=== PATIENT | female | born 1950 | race Caucasian/White ===

== ENCOUNTER → 2020-12-21 08:04 | Outpatient (CLI) | payer MEDICARE, OTHER, SELFPAY ==
[2020-12-21 19:37] LABS: Alanine Aminotransferase 15 IU/L (<35); Albumin 4.4 g/dL (3.5-5.0); Albumin Globulin Ratio 1.8 (1.0-2.8); Alkaline Phosphatase 107 U/L (38-126); Aspartate Aminotransferase 28 IU/L (14-36); BUN Creatinine Ratio 17.5 (6-22); Bilirubin Total 0.9 mg/dL (0.2-1.3); Blood Urea Nitrogen 11 mg/dL (7-17); Calcium 10.2 mg/dL (8.4-10.2); Carbon Dioxide 32 mmol/L (22-32); Chloride 101 mmol/L (98-107); Cholesterol 212 mg/dL (140-199); Estimated Glomerular Filt Rate > 60.0 mL/min (>60); Globulin 2.4 g/dL (1.7-4.1); Glucose 93 mg/dL (80-110); HDL Cholesterol 106 mg/dL (40-60); HEMOLYSIS < 15 (0-50); LDL Cholesterol Calculated 90 mg/dL (<100); Sodium 138 mmol/L (137-145); Total Protein 6.8 g/dL (6.3-8.2); Triglycerides 78 mg/dL (35-150)
[2020-12-21 19:38] LABS: Add Manual Diff / Slide Review NO; Basophils Absolute Auto 100 /uL (0-100); Basophils Percent Auto 0.9 % (0-2); Eosinophils Absolute Auto 200 /uL (0-450); Eosinophils Percent Auto 3.8 % (2-4); Hematocrit 44.6 % (36-46); Hemoglobin 14.9 g/dL (12.0-16.0); Lymphocytes Absolute Auto 1600 /uL (1100-4500); Mean Corpuscular HGB Conc 33.3 % (30-36); Mean Corpuscular Volume 96.2 fL (80-100); Monocytes Absolute Auto 600 /uL (0-900); Neutrophils Absolute Auto 3700 /uL (1500-7000); Neutrophils Percent Auto 59.3 % (50-75); Platelet Count 252 X10^3/uL (150-400); Red Blood Cell Count 4.64 X10^6/uL (4.0-5.2); Red Cell Distribution Width 13.5 % (11.6-14.8); White Blood Cell Count 6.2 X10^3/uL (4.5-11.0)
== END ==
PROVIDERS: PCP Family Medicine; Visit Provider Family Medicine
DX: I10 Essential (primary) hypertension (principal)
CPT/HCPCS: 80053; 80061; 85025

== ENCOUNTER → 2022-02-14 09:29 | Outpatient (CLI) | payer MEDICARE, OTHER, SELFPAY ==
[2022-02-14 19:34] LABS: Add Manual Diff / Slide Review NO; Basophils Absolute Auto 100 /uL (0-100); Basophils Percent Auto 1.1 % (0-2); Eosinophils Absolute Auto 400 /uL (0-450); Eosinophils Percent Auto 8.5 % (2-4); Hematocrit 41.4 % (36-46); Lymphocytes Absolute Auto 1300 /uL (1100-4500); Mean Corpuscular HGB Conc 33.7 % (30-36); Mean Corpuscular Hemoglobin 31.2 PG (26-34); Mean Corpuscular Volume 92.6 fL (80-100); Monocytes Absolute Auto 400 /uL (0-900); Monocytes Percent Auto 8.6 % (3-14); Neutrophils Absolute Auto 2500 /uL (1500-7000); Neutrophils Percent Auto 53.8 % (50-75); Platelet Count 290 X10^3/uL (150-400); Red Blood Cell Count 4.47 X10^6/uL (4.0-5.2); Red Cell Distribution Width 12.8 % (11.6-14.8); White Blood Cell Count 4.7 X10^3/uL (4.5-11.0)
[2022-02-14 19:49] LABS: Alanine Aminotransferase 16 IU/L (<35); Albumin 4.3 g/dL (3.5-5.0); Albumin Globulin Ratio 1.7 (1.0-2.8); Alkaline Phosphatase 127 U/L (38-126); Aspartate Aminotransferase 28 IU/L (14-36); BUN Creatinine Ratio 23.1 (6-22); Bilirubin Total 0.7 mg/dL (0.2-1.3); Blood Urea Nitrogen 15 mg/dL (7-17); Calcium 9.1 mg/dL (8.4-10.2); Carbon Dioxide 27 mmol/L (22-32); Chloride 100 mmol/L (98-107); Cholesterol 205 mg/dL (140-199); Estimated Glomerular Filt Rate > 60 mL/min (>60); Globulin 2.5 g/dL (1.7-4.1); Glucose 80 mg/dL (80-110); HDL Cholesterol 88 mg/dL (40-60); HEMOLYSIS < 15 (0-50); LDL Cholesterol Calculated 106 mg/dL (<100); Potassium 4.1 mmol/L (3.4-5.1); Sodium 136 mmol/L (137-145); Total Protein 6.8 g/dL (6.3-8.2); Triglycerides 57 mg/dL (35-150)
[2022-02-14 20:38] LABS: Erythrocyte Sedimentation Rate 5 MM/HR (0-20)
== END ==
PROVIDERS: PCP Physician Assistant; Visit Provider Physician Assistant
DX: M25.569 Pain in unspecified knee (principal); I10 Essential (primary) hypertension; K21.9 Gastro-esophageal reflux disease without esophagitis; Z13.220 Encounter for screening for lipoid disorders; Z79.899 Other long term (current) drug therapy
CPT/HCPCS: 80053; 80061; 85025; 85651

== ENCOUNTER → 2022-02-21 14:39 | Outpatient (CLI) | payer MEDICARE, OTHER, SELFPAY | PROVIDERS: PCP Physician Assistant; Referring Provider Physician Assistant; Visit Provider Physician Assistant | DX: Z13.820 Encounter for screening for osteoporosis (principal); Z78.0 Asymptomatic menopausal state; M85.852 Other specified disorders of bone density and structure, left thigh | CPT/HCPCS: 77080 ==

== ENCOUNTER → 2022-05-03 10:28 | Outpatient (CLI) | payer MEDICARE, OTHER, SELFPAY ==
[2022-05-03 19:42] LABS: Add Manual Diff / Slide Review NO; Basophils Absolute Auto 0 /uL (0-100); Basophils Percent Auto 0.9 % (0-2); Eosinophils Absolute Auto 200 /uL (0-450); Eosinophils Percent Auto 5.2 % (2-4); Hematocrit 41.1 % (36-46); Hemoglobin 13.6 g/dL (12.0-16.0); Lymphocytes Absolute Auto 1100 /uL (1100-4500); Lymphocytes Percent Auto 27.1 % (25-40); Mean Corpuscular Hemoglobin 30.9 PG (26-34); Mean Corpuscular Volume 93.6 fL (80-100); Monocytes Absolute Auto 400 /uL (0-900); Monocytes Percent Auto 10.9 % (3-14); Neutrophils Absolute Auto 2200 /uL (1500-7000); Neutrophils Percent Auto 55.9 % (50-75); Platelet Count 279 X10^3/uL (150-400); Red Blood Cell Count 4.39 X10^6/uL (4.0-5.2); Red Cell Distribution Width 13.7 % (11.6-14.8)
[2022-05-03 19:47] LABS: Alanine Aminotransferase 17 IU/L (<35); Albumin 4.1 g/dL (3.5-5.0); Albumin Globulin Ratio 1.6 (1.0-2.8); Alkaline Phosphatase 88 U/L (38-126); Aspartate Aminotransferase 28 IU/L (14-36); BUN Creatinine Ratio 25.4 (6-22); Bilirubin Total 0.5 mg/dL (0.2-1.3); Blood Urea Nitrogen 15 mg/dL (7-17); Calcium 9.6 mg/dL (8.4-10.2); Carbon Dioxide 30 mmol/L (22-32); Chloride 102 mmol/L (98-107); Estimated Glomerular Filt Rate > 60 mL/min (>60); Globulin 2.5 g/dL (1.7-4.1); Glucose 76 mg/dL (80-110); HEMOLYSIS 27 (0-50); Potassium 4.5 mmol/L (3.4-5.1); Sodium 139 mmol/L (137-145); Total Protein 6.6 g/dL (6.3-8.2)
== END ==
PROVIDERS: PCP Physician Assistant; Visit Provider Physician Assistant
DX: I10 Essential (primary) hypertension (principal); R74.8 Abnormal levels of other serum enzymes; Z79.899 Other long term (current) drug therapy
CPT/HCPCS: 80053; 85025

== ENCOUNTER → 2022-05-09 13:09 | Outpatient (CLI) | payer MEDICARE, OTHER, SELFPAY ==
[2022-05-11 12:53] LABS: Fecal Immunochemical Test Negative (Negative)
== END ==
PROVIDERS: PCP Physician Assistant; Visit Provider Physician Assistant
DX: I10 Essential (primary) hypertension (principal); K21.9 Gastro-esophageal reflux disease without esophagitis; Z13.220 Encounter for screening for lipoid disorders; Z79.899 Other long term (current) drug therapy
CPT/HCPCS: 82274

== ENCOUNTER → 2023-01-11 14:31 | Outpatient (CLI) | payer MEDICARE, OTHER, SELFPAY ==
[2023-01-11 19:46] LABS: BUN Creatinine Ratio 24.6 (6-22); Blood Urea Nitrogen 15 mg/dL (7-17); Calcium 10.1 mg/dL (8.4-10.2); Carbon Dioxide 26 mmol/L (22-32); Chloride 100 mmol/L (98-107); Estimated Glomerular Filt Rate > 60 mL/min (>60); Glucose 91 mg/dL (80-110); HEMOLYSIS < 15 (0-50); Sodium 137 mmol/L (137-145)
== END ==
PROVIDERS: PCP Physician Assistant; Visit Provider Nurse Practitioner Acute Care
DX: Q21.10 Atrial septal defect, unspecified (principal)
CPT/HCPCS: 80048

== ENCOUNTER → 2023-02-20 10:31 | Outpatient (CLI) | payer MEDICARE, OTHER, SELFPAY ==
--- NOTE | 2023-02-20 10:33 | DI.MRI.S_ITS ---
PROCEDURE: MR LUMBAR SPINE WO CON INDICATIONS: lumbar pain radiating to right leg TECHNIQUE: Noncontrast sagittal T1 spin echo and T2 fast echo, sagittal STIR, and T2 fast spin echo through the lumbar spine. In cases with scoliosis, additional coronal T2 fast spin echo may be performed. COMPARISON: None. FINDINGS: Image quality: Excellent. Alignment and Curvature: There is normal bony alignment. Bone Marrow: Marrow is of normal overall signal. No acute vertebral body compression fractures. Spinal Cord: Conus medullaris terminates at the L1 level. Visualized cord demonstrates normal signal and size. Paraspinous Soft Tissues: No paravertebral masses. T12-L1: Normal appearance. L1-L2: Normal appearance. L2-L3: Disc height is maintained. Hypertrophic facet joints present. Mild central and no foraminal stenosis L3-L4: Disc height is maintained. Circumferential disc bulge and hypertrophic facet joints with ligamentum flavum laxity results in moderate central stenosis. No foraminal stenosis L4-L5: Disc space narrowing and posterior disc bulge with hypertrophic facet joints. Moderate central stenosis. Moderate bilateral foraminal stenosis greater on the left. L5-S1: Disc height is maintained. Posterior asymmetric left disc bulge with mild central stenosis. No foraminal stenosis IMPRESSION: Multilevel degenerative disc disease and arthropathy results in varying degrees of central and foraminal stenosis including moderate central stenosis L3-4 Approved by: Chandler Jules M.D. on 02/20/2023 at 15:35
--- NOTE | 2023-02-20 10:33 | DI.MRI.S_ITS ---
PROCEDURE: MR THORACIC SPINE WO CON INDICATIONS: thoracic pain with radiation to chest wall and arms TECHNIQUE: Noncontrast sagittal T1 spine echo and T2 fast spin echo, sagittal STIR, and T2 fast spin echo through the thoracic spine. COMPARISON: None. FINDINGS: Image quality: Excellent. Alignment and Curvature: There is normal bony alignment. Bone Marrow: Marrow is of normal overall signal. No acute vertebral body compression fractures. Spinal Cord: Visualized spinal cord is normal in size and signal. Paraspinous Soft Tissues: No paravertebral masses. Incidental L1-2 and T12-L1 foraminal perineural cyst Miscellaneous: On axial images, central canal and foramina appear widely patent at all scanned levels. Incidentally at C5-6, there is a posterior disc osteophyte complex resulting in moderate central stenosis IMPRESSION: Incidental moderate central stenosis C5-6 and perineural cysts at L1-2 / T12-L1 Approved by: Chandler Jules M.D. on 02/20/2023 at 15:04
== END ==
PROVIDERS: PCP Physician Assistant; Referring Provider Physician Assistant; Visit Provider Physician Assistant
DX: M48.02 Spinal stenosis, cervical region (principal); M54.14 Radiculopathy, thoracic region; G96.191 Perineural cyst; M51.16 Intervertebral disc disorders with radiculopathy, lumbar region; M47.26 Other spondylosis with radiculopathy, lumbar region; M48.061 Spinal stenosis, lumbar region without neurogenic claudication; M48.07 Spinal stenosis, lumbosacral region; M51.17 Intervertebral disc disorders with radiculopathy, lumbosacral region; M25.551 Pain in right hip; M17.11 Unilateral primary osteoarthritis, right knee; M25.561 Pain in right knee; M54.9 Dorsalgia, unspecified; G89.29 Other chronic pain
CPT/HCPCS: 72146; 72148; 99214

== ENCOUNTER 2023-06-13 14:32 | Outpatient (CLI) | payer MEDICARE, OTHER, SELFPAY ==
[2023-06-13] VITALS (8 sets, daily range): BP systolic 138–148; BP diastolic 72–91; PULSE 62–78; RESP 15–22; TEMP 36.5; O2SAT 97–100
[2023-06-13] MEDS: MIDAZOLAM 2 MG/2 ML VIAL 1 MG IV (15:30)
--- NOTE | 2023-06-13 15:30 | DI.RAD.S_ITS ---
PROCEDURE: PAIN GENICULAR NERVE BLOCK RT INDICATIONS: knee osteoarthritis COMPARISON: [facility] ([facility]), CR, XR KNEE RT 3V, 01/05/2023, 11:12. FINDINGS: Fluoroscopic spot filming was performed to verify placement of spinal needles at the knee level(s), as labeled on the films. Appropriate location(s) of the needle tip(s) was confirmed by injection of iodinated contrast. IMPRESSION: Fluoroscopy guidance for pain management. Dictated by: Anthony Dailey M.D. on 06/14/2023 at 9:20 Approved by: Anthony Dailey M.D. on 06/14/2023 at 9:21
[2023-06-13] MEDS: BUPIVACAINE 0.5% (PF) 10 ML VIAL 5 ML INJ (15:32)
[2023-06-13] MEDS: iopamidoL 15 ML VIAL 3 ML INJ (15:33)
--- NOTE | 2023-06-13 16:37 | P.PCN_ITS ---
Date/Time/Diagnoses Date of procedure: 06/13/23 Time of procedure: 15:30 Procedure Notes Physician: Jefry Saravia Total Fluoroscopy time (seconds): 14 Total sedation minutes: 12 Procedure in detail & Post-procedure care: Right Genicular Nerve Injections Indications: Rylie is presenting for treatment of right knee osteoarthritis with knee pain. Preoperative diagnosis: Right knee osteoarthritis Postoperative diagnosis: Same Focused Examination: Ax3 Mood and affect are normal Vital Signs: VSS Consent: Following review of allergies and potential side effects/complications, including, but not necessarily limited to, infection, allergic reaction, local tissue breakdown, stroke, temporary or permanent nerve injury, paralysis, and possible , the patient indicated that they understood and agreed to proceed.? An informed consent document was signed by the patient, witnessed by a nurse and placed in the patient's chart.? Additionally, other treatment options including medications and physical therapy were reviewed with the patient. All questions were answered. Site was then marked. Anesthesia: After review of previous anesthetic history and IV conscious sedation, the patient was deemed safe to proceed with today's procedure with IV conscious sedation. IV sedation was accomplished with midazolam 1 mg administered by the RN after order by Dr. Saravia. Sedation was titrated to patient comfort during the course of the procedure. Patient remained responsive to all verbal commands. Position: Prone Monitoring: NIBP, Pulse oximetry, 3 lead EKG Needle used: 22 ga, 3.5 inch spinal Contrast: Isovue 300-M 2 mL Injectate: 0.5% bupivacaine 1 mL per site Technique: The skin was prepped with chloraprep and then draped in a sterile fashion. Time out was performed as per protocol. Oxygen applied via NC. Skin and subcutaneous structures of the needle entry sites were then infiltrated with 5 mL of lidocaine 1% divided among the 3 injection sites. Under AP and lateral fluoroscopic control, the needles were guided into the expected location of the superomedial, superolateral and inferomedial genicular nerves. Isovue 300-M was then injected and the spread confirmed proper needle location. There was no evidence for intravascular uptake. After negative aspiration, the above- mentioned injectate was then slowly administered to each site and the needles withdrawn. The patient expressed no unusual discomfort or paresthesias during the injection. Band-Aids applied to injection sites. EBL: less than 1 ml Complications: None Post Procedure: Patient was taken to the recovery and monitored. The patient was provided a Pain Log to continue to record the patient's response to the target- specific procedure prior to the patient's follow-up visit with the referring physician. Patient was stable upon discharge. Detailed post procedure instructions were provided. Patient was asked to call in the event of worsening pain, fever, weakness, numbness or bladder or bowel incontinence.
--- NOTE | 2023-06-14 13:48 | PC.NURSE ---
Post-Procedure Call: Spoke with patient at [phone]. Questions regarding follow up appt answered. Encouraged to contact the office as needed.
== END 2023-06-13 16:09 | disposition home or self-care (01) ==
PROVIDERS: PCP Physician Assistant; Referring Provider Anesthesiology; Visit Provider Anesthesiology
DX: M17.11 Unilateral primary osteoarthritis, right knee (principal)
CPT/HCPCS: 64454; 99152; J2250

== ENCOUNTER 2023-08-22 12:04 | Outpatient (CLI) | payer MEDICARE, OTHER, SELFPAY ==
[2023-08-22] VITALS (9 sets, daily range): BP systolic 106–139; BP diastolic 62–80; PULSE 64–76; RESP 10–20; TEMP 36.1; O2SAT 97–100
--- NOTE | 2023-08-22 12:05 | DI.RAD.S_ITS ---
PROCEDURE: XR DEXA AXIAL SKELETON INDICATIONS: bone density screening COMPARISON: [facility], CR, XR DEXA AXIAL SKELETON, 02/21/2022, 15:02. FINDINGS: Lumbar Spine: L1-L3. Bone mineral density 0.790 g/cm2, T score -2.1. Left Hip: Bone mineral density 0.687 g/cm2, T score -2.1, no significant oval change. Left Femoral Neck: Bone mineral density 0.620 g/cm2, T score -2.1, no significant interval change. Right Hip: Bone mineral density 0.656 g/cm2, T score -2.3, no significant oval change. Right Femoral Neck: Bone mineral density 0.699 g/cm2, T score 1.4, there is significant interval increase in bone mineral density. Fracture Risk Calculation (when applicable): 10-year fracture risk of a major osteoporotic fracture 23% and of a hip fracture 13%. (T score greater or equal to -1.0 to: NORMAL) (T score from -1.1 to -2.4: OSTEOPENIA) (T score less than or equal to -2.5: OSTEOPOROSIS) IMPRESSION: Osteopenia. There is significant interval increase in bone mineral density at the right femoral neck. Follow-up guidelines as follows: Osteoporosis: Consider a repeat DEXA and Vertebral Fracture Assessment (VFA) exam in 2 years or sooner if medically necessary, to reassess this patient's status. Osteopenia: Consider a repeat DEXA in 2-3 years to reassess this patient's status, or if there is a new clinical indication. Normal: Consider a repeat DEXA in 5 years or sooner, or if there is a new clinical indication. All treatment decisions require clinical judgment and consideration of individual patient factors, including patient preferences, comorbidities, previous drug use, risk factors not captured in the FRAX model (e.g., frailty, falls, vitamin D deficiency, increased bone turnover, interval significant decline in bone density ) and possible under- or over-estimation of fracture risk by FRAX. In addition, the NOF Guide recommends that FDA-approved medical therapies be considered in postmenopausal women and men age >= 50 years with a: * Hip or vertebral (clinical or morphometric) fracture * T-score of <=-2.5 at the spine or hip * Ten-year fracture probability by FRAX of >= 3% for hip fracture or >=20% for major osteoporotic fracture. People with diagnosed cases of osteoporosis or at high risk for fracture should have regular bone mineral density tests. For patients eligible for Medicare, routine testing is allowed once every 2 years. The testing frequency can be increased to one year for patients who have rapidly progressing disease, those who are receiving or discontinuing medical therapy to restore bone mass, or have additional risk factors. Dictated by: Junior Lyn M.D. on 08/22/2023 at 17:39 Approved by: Junior Lyn M.D. on 08/22/2023 at 17:42
--- NOTE | 2023-08-22 14:00 | DI.RAD.S_ITS ---
PROCEDURE: GENICULAR RFA RT INDICATIONS: Rt knee pain and arthritis COMPARISON: None. FINDINGS: Fluoroscopic spot filming was performed to verify placement of needles for genicular ablation level(s), as labeled on the films. Appropriate location(s) of the needle tip(s) was confirmed by injection of iodinated contrast. IMPRESSION: Needle placement for geniculate ablation Dictated by: Lety Marcus M.D. on 08/22/2023 at 17:19 Approved by: Lety Marcus M.D. on 08/22/2023 at 17:19
[2023-08-22] MEDS: MIDAZOLAM 2 MG/2 ML VIAL 1 MG IV ×2 (14:20→14:29)
[2023-08-22] MEDS: DEXAMETHASONE 10 MG/ML VIAL INJ (14:24)
[2023-08-22] MEDS: LIDOCAINE 2% INJ MDV 20ML 5 ML INJ (14:24)
[2023-08-22] MEDS: BUPIVACAINE 0.5% (PF) 10 ML VIAL 5 ML INJ (14:24)
--- NOTE | 2023-08-22 16:52 | P.PCN_ITS ---
Date/Time/Diagnoses Date of procedure: 08/22/23 Time of procedure: 14:00 Procedure Notes Physician: Jefry Saravia Total Fluoroscopy time (seconds): 18 Total sedation minutes: 23 Procedure in detail & Post-procedure care: Right Genicular Nerve Radiofrequency Ablation Indications: Rylie is presenting for treatment of right knee osteoarthritis with knee pain. Preoperative diagnosis: Right knee osteoarthritis Postoperative diagnosis: Same Focused Examination: Ax3 Mood and affect are normal Vital Signs: VSS Consent: Following review of allergies and potential side effects/complications, including, but not necessarily limited to, infection, allergic reaction, local tissue breakdown, stroke, temporary or permanent nerve injury, paralysis, and possible , the patient indicated that they understood and agreed to proceed.? An informed consent document was signed by the patient, witnessed by a nurse and placed in the patient's chart.? Additionally, other treatment options including medications and physical therapy were reviewed with the patient. All questions were answered. Site was then marked. Anesthesia: After review of previous anesthetic history and IV conscious sedation, the patient was deemed safe to proceed with today's procedure with IV conscious sedation. IV sedation was accomplished with midazolam 2 mg administered by the RN after order by Dr. Saravia. Sedation was titrated to patient comfort during the course of the procedure. Patient remained responsive to all verbal commands. Position: Supine Monitoring: NIBP, Pulse oximetry, 3 lead EKG Procedure: The patient was brought into the procedure room and positioned into the supine position with the affected knee on a bolster for elevation. Skin overlying the right knee was prepped with a Chloraprep solution, allowed to air dry, and then draped in sterile fashion.? Oxygen applied via NC. Using the AP fluoroscopic view, skin and subcutaneous structures of the needle entry sites were infiltrated with 5 mL of lidocaine 1% divided among the 3 injection sites. Under AP and lateral fluoroscopic control, an 18 ga, 100 mm RFA needle with a 10 mm active tip was advanced into the expected location of the superomedial, superolateral and inferomedial genicular nerves. AP and lateral radiographs were taken to confirm proper needle placement. No paresthesias were noted. The stylet was removed and the radiofrequency probe was inserted through the cannula. Each level was individually tested.? Motor stimulation up to 2V did not elicit any motor stimulation. After negative aspiration, 1ml of 2% lidocaine was injected at each of the locations and radiofrequency ablation carried out using 50 degrees Celsius for 60 seconds. The needles were then withdrawn several milimeters and a second ablation was performed at 50 degrees Celsius for 60 seconds. The needles were then withdrawn several milimeters and a third ablation was performed at 50 degrees Celsius for 60 seconds. After ablation, a mixture of 10 mg dexamethasone with 0.5% bupivacaine 2 mL was injected in equal amounts among the sites (1 mL per site). At the end of the procedure the needles were withdrawn and Band-Aids were applied for a dressing. EBL: less than 1 ml Complications: None Post Procedure: Patient was taken to the recovery and monitored. The patient was provided a Pain Log to continue to record the patient's response to the target- specific procedure prior to the patient's follow-up visit with the referring physician. Patient was stable upon discharge. Detailed post procedure instructions were provided. Patient was asked to call in the event of worsening pain, fever, weakness, numbness or bladder or bowel incontinence
== END 2023-08-22 15:08 | disposition home or self-care (01) ==
LOC: RAD 12:05
PROVIDERS: PCP Physician Assistant; Referring Provider Anesthesiology; Visit Provider Anesthesiology
DX: M85.89 Other specified disorders of bone density and structure, multiple sites (principal); M17.11 Unilateral primary osteoarthritis, right knee; Z78.0 Asymptomatic menopausal state; M25.561 Pain in right knee
CPT/HCPCS: 64624; 77080; 99152; 99153; J1100; J2250

== ENCOUNTER → 2023-12-03 09:33 | Outpatient (CLI) | payer MEDICARE, OTHER, SELFPAY ==
[2023-12-03 19:26] LABS: Add Manual Diff / Slide Review NO; Basophils Absolute Auto 100 /uL (0-100); Basophils Percent Auto 1.4 % (0-2); Eosinophils Absolute Auto 100 /uL (0-450); Eosinophils Percent Auto 3.2 % (2-4); Hematocrit 38.8 % (36-46); Hemoglobin 12.8 g/dL (12.0-16.0); Lymphocytes Absolute Auto 1100 /uL (1100-4500); Lymphocytes Percent Auto 24.5 % (25-40); Mean Corpuscular Hemoglobin 30.6 PG (26-34); Mean Corpuscular Volume 92.6 fL (80-100); Monocytes Absolute Auto 500 /uL (0-900); Monocytes Percent Auto 10.6 % (3-14); Neutrophils Absolute Auto 2700 /uL (1500-7000); Neutrophils Percent Auto 60.3 % (50-75); Platelet Count 316 X10^3/uL (150-400); Red Blood Cell Count 4.18 X10^6/uL (4.0-5.2); Red Cell Distribution Width 13.4 % (11.6-14.8); White Blood Cell Count 4.6 X10^3/uL (4.5-11.0)
[2023-12-03 19:40] LABS: BUN Creatinine Ratio 27.3 (6-22); Blood Urea Nitrogen 18 mg/dL (7-17); Calcium 10.1 mg/dL (8.4-10.2); Carbon Dioxide 26 mmol/L (22-32); Chloride 101 mmol/L (98-107); Cholesterol 216 mg/dL (140-199); Estimated Glomerular Filt Rate > 60 mL/min (>60); Glucose 90 mg/dL (80-110); HEMOLYSIS < 15 (0-50); Potassium 4.1 mmol/L (3.4-5.1); Sodium 135 mmol/L (137-145); Triglycerides 42 mg/dL (35-150)
[2023-12-03 19:51] LABS: HDL Cholesterol 129 mg/dL (40-60); LDL Cholesterol Calculated 79 mg/dL (<100)
== END ==
PROVIDERS: PCP Physician Assistant; Visit Provider Family Medicine
DX: R06.09 Other forms of dyspnea (principal); I10 Essential (primary) hypertension; Z13.220 Encounter for screening for lipoid disorders; Z13.6 Encounter for screening for cardiovascular disorders
CPT/HCPCS: 80048; 80061; 85025

== ENCOUNTER → 2023-12-07 09:26 | Outpatient (CLI) | payer MEDICARE, OTHER, SELFPAY ==
--- NOTE | 2023-12-07 12:30 | DI.NM.S_ITS ---
PROCEDURE: NM RADHA PERF SPECT REST & STR Rest and exercise myocardial perfusion SPECT with gated imaging and ejection fraction RADIOPHARMACEUTICAL: 12.7 mCi Tc-99m sestamibi IV at rest and 26.4 mCi Tc-99m sestamibi IV at peak exercise. A one day-protocol was performed. INDICATIONS: MELVIN developing in the last year PQRS ATTESTATIONS: Measure 322 - Is this imaging test primarily performed on a low-risk surgery patient for preoperative evaluation within 30 days preceding their low-risk non-cardiac surgery? Low-risk surgery is defined as cardiac or myocardial infarction less than 1%, including (but not limited to) endoscopic procedures, superficial procedures, cataract surgery, and excisional breast surgery: Answer: No Measure 323 - Is this imaging test performed primarily for the monitoring of an asymptomatic patient who had percutaneous coronary intervention on the visit date or within 2 years of the visit date? Answer: No Measure 324 - Is this imaging test performed primarily for the initial detection and risk assessment on an asymptomatic, low coronary heart disease patient? Low CHD risk definition = clinicians should consider the maximum number of available patient factors used to estimate risk based on Munger (ATP III criteria), typically age, gender, diabetes, smoking status, and use of blood pressure medication, and integrate age appropriate estimates for missing elements, such as LDL or standard blood pressure. Answer: No TECHNIQUE: Radiopharmaceutical was injected at peak stress test, and also at rest. SPECT images were obtained. SPECT myocardial perfusion images were displayed in short axis, horizontal long axis, and vertical long axis views. Gated images were reviewed using [employer] software. COMPARISON: None. CARDIAC STRESS: A standard Chaz treadmill exercise tolerance test was performed by the patient under the supervision of an attending staff. The patient exercised for 3 minutes and 1 seconds; functional aerobic impairment (NICHELLE) is +29%. Hemodynamic data: There is normal blood pressure and heart rate response to exercise stress. Patient achieved 110 of maximum predicted heart rate at peak exercise. Symptoms: Patient denied chest pain during exercise. EKG: ECG stress portion was not interpretable due to significant baseline artifact. No obvious arrhythmias noted. FINDINGS: Raw data: There is good myocardial labeling by radiotracer. No significant motion artifacts. Drbv-wd-hgblv ratio is not calculated (normal is less than 0.38 for sestamibi tracer, and less than 0.50 for thallium tracer). Left ventricle function: Gated images demonstrate normal left ventricle wall thickening. No segmental wall motion abnormality. No transient ischemic dilation; TID is 0.93 (normal less than 1.3). The left ventricle resting end-diastolic volume is 100 mL. Left ventricle stress ejection fraction is 71% ; normal values are above 45%. Myocardial perfusion: There was global hypoperfusion noted in the rest images. Improved perfusion in all segments were noted in the stress images as well as prone images. No fixed or reversible perfusion defects. IMPRESSION: 1. Negative exercise myocardial perfusion scan for ischemia and infarction. 2. Below average exercise tolerance. Dictated by: Farhan Saldana M.D. on 12/07/2023 at 16:33 Approved by: Farhan Saldana M.D. on 12/07/2023 at 16:36
== END ==
PROVIDERS: PCP Physician Assistant; Referring Provider Family Medicine; Visit Provider Family Medicine
DX: R06.09 Other forms of dyspnea (principal); I10 Essential (primary) hypertension; R01.1 Cardiac murmur, unspecified
CPT/HCPCS: 78452; 93017; A9502

== ENCOUNTER → 2024-02-07 08:51 | Outpatient (CLI) | payer MEDICARE, OTHER, SELFPAY ==
--- NOTE | 2024-02-07 08:56 | DI.CT.S_ITS ---
PROCEDURE: CT ANGIO CHEST PE PROTOCOL INDICATIONS: MELVIN onset 6 months ago TECHNIQUE: After the administration of intravenous contrast, 2 mm thick sections acquired from the pulmonary apices to the posterior costophrenic angles. 3-dimensional maximum intensity projection (MIP) coronal and sagittal reformats were then acquired through the thorax. For radiation dose reduction, the following was used: automated exposure control, adjustment of mA and/or kV according to patient size. COMPARISON: None. FINDINGS: Image quality: Diagnostic. Pulmonary arteries: Pulmonary arteries are normal in size, and demonstrate no intraluminal filling defects to suggest central pulmonary embolism. Lower Neck: No enlarged lymph nodes. Thyroid: No thyroid nodules which require sonographic follow up, per consensus guidelines. Axillae: No enlarged lymph nodes. Chest Wall: Unremarkable. Bones: Unremarkable. Lungs and Pleura: No pneumothorax or pleural effusions. No consolidation or suspicious nodules. Heart: Heart size is normal. No pericardial effusion. Calcification of the coronary vasculature. Thoracic Vessels: No aortic aneurysm. Mediastinum and Rachel: No enlarged lymph nodes. Esophagus: No wall thickening. No hiatal hernia. Upper Abdomen: Visualized upper abdomen solid organs and bowel loops appear normal. IMPRESSION: 1. Coronary artery disease. 2. No acute process. 3. No evidence of pulmonary embolus. Dictated by: Kapil Sood M.D. on 02/07/2024 at 16:37 Approved by: Kapil Sood M.D. on 02/07/2024 at 16:46
[2024-02-07 10:01] LABS: Estimated Glomerular Filt Rate > 60 mL/min (>60)
--- NOTE | 2024-02-07 13:42 | DI.ECHO.S_ITS ---
[facility] : : [id number] : [place] : : [id number] : : Phone: [phone] Echocardiogram Report + + :Name: BHAVANA MAIN Study Date: 02/07/2024 Height: 65.5 in: :[facility] ReadingLocation: Weight: 137 lb : : Gender: Female BSA: 1.7 m2 : :: 1950 Age: 73 yrs BP: 145/85 mmHg: :Reason For Study: MELVIN : :Ordering Physician: LAM : :ELDA Performed By: Carlene Gonzales : :Referring: ELDA FRITZ : + + Interpretation Summary The ejection fraction is estimated to be 55-60%. Diastolic function could not be accurately assessed due to contradictory data. The left atrium is mildly dilated. The right ventricle is moderately dilated. The right ventricular systolic function is normal. The right atrium is moderately dilated. ASD closure device noted. No evidence of shunt. There is mild tricuspid regurgitation. Pulmonary artery pressures cannot be estimated because of the lack of a measurable TR jet velocity but the IVC suggests a CVP of around 3 mmHg. Compared to the prior study dated 07/21/2021, the right sided chambers now appear more dilated. Procedure: A two-dimensional transthoracic echocardiogram with color flow and Doppler was performed. The study quality was technically adequate. Comparison is made with the echocardiogram of 07/21/2021. The patient was in sinus rhythm with heart rates between 58-78 bpm during the exam. Left Ventricle: The left ventricle is normal in size and wall thickness. The ejection fraction is estimated to be 55-60%. Diastolic function could not be accurately assessed due to contradictory data. Right Ventricle: The right ventricle is moderately dilated. The right ventricular systolic function is normal. Atria: The left atrium is mildly dilated. The right atrium is moderately dilated. There is no Doppler evidence for an interatrial shunt. ASD closure device noted. No evidence of shunt. Mitral Valve: The mitral valve leaflets appear normal. There is no evidence of stenosis, fluttering, or prolapse. There is trace mitral regurgitation. Aortic Valve: The aortic valve is trileaflet. The aortic valve opens well. There is no aortic valve stenosis. No aortic regurgitation is present. Tricuspid Valve: The tricuspid valve leaflets are thin and pliable. There is mild tricuspid regurgitation. Pulmonary artery pressures cannot be estimated because of the lack of a measurable TR jet velocity but the IVC suggests a CVP of around 3 mmHg. Pulmonic Valve: The pulmonic valve leaflets are thin and pliable; valve motion is normal. There is a trace or physiologic amount of pulmonic regurgitation. Great Vessels: The aortic root is normal size. The ascending aorta is normal in size. The aortic arch is normal in size. The pulmonary artery is normal size. The IVC is of normal diameter and collapses greater than 50% with a sniff. This suggests a low right atrial pressure of 3 mm Hg. Pericardium/ Pleura There is an anterior echo-free space consistent with a fat pad. There is no pericardial effusion. There is no pleural effusion. MMode/2D Measurements & Calculations LVIDd: 3.8 cm LVOT diam: 2.0 cm LVIDs: 2.3 cm Ao root diam: 3.2 cm FS: 37.8 % asc Aorta Diam: 3.5 cm EPSS: 0.71 cm Ao Arch Diam (Prox Trans): 2.8 cm IVSd: 1.0 cm LVPWd: 1.3 cm LV aleman. diameter/BSA (cm/m^2): 2.2 LV sys. diameter/BSA (cm/m^2): 1.4 LA A2 area: 23.1 cm2 RA long axis: 4.6 cm LA A4 area: 17.4 cm2 RA area: 17.2 cm2 LA length (vol): 5.1 cm RA vol: 55.2 ml LA vol: 66.5 ml RA : 32.6 ml/m2 LA vol index: 39.3 ml/m2 IVC diam: 2.0 cm TAPSE: 2.9 cm Doppler Measurements & Calculations Ao V2 max: 127.4 cm/sec LVOT Max Piero: 104.7 cm/sec Ao V2 mean: 89.8 cm/sec LV V1 max P.4 mmHg Ao max P.5 mmHg LV V1 VTI: 22.9 cm Ao mean P.7 mmHg NOE(I,D): 2.5 cm2 Ao V2 VTI: 30.0 cm NOE(V,D): 2.7 cm2 sev ratio: 0.76 NOE indexed to BSA (cm^2/m^2): 1.5 MV E max piero: 53.2 cm/sec TR max piero: 214.9 cm/sec MV A max piero: 61.0 cm/sec TR max P.8 mmHg MV E/A: 0.87 PA V2 max: 74.6 cm/sec Med Peak E' Piero: 6.2 cm/sec PA V2 mean: 49.2 cm/sec E/E' med: 8.5 PA mean P.1 mmHg Lat Peak E' Piero: 12.6 cm/sec PA pr(Accel): 41.3 mmHg E/E' lat: 4.2 E/e' average: 6.4 MV dec time: 0.22 sec MVA(VTI): 3.4 cm2 MV V2 mean: 44.8 cm/sec SV(LVOT): 75.6 ml MV mean P.96 mmHg MV V2 VTI: 22.1 cm Reading Physician:05:43 PM
== END ==
PROVIDERS: Radiology Diagnostic Radiology; PCP Physician Assistant; Referring Provider Family Medicine; Visit Provider Family Medicine
DX: I07.1 Rheumatic tricuspid insufficiency (principal); I25.10 Atherosclerotic heart disease of native coronary artery without angina pectoris; R06.09 Other forms of dyspnea
CPT/HCPCS: 36415; 71275; 82565; 99214; C8929; Q9957; Q9967

== ENCOUNTER 2024-04-29 09:46 | Outpatient (CLI) | payer MEDICARE, OTHER, SELFPAY ==
[2024-04-29] VITALS (9 sets, daily range): BP systolic 150–184; BP diastolic 72–92; PULSE 60–70; RESP 14–18; TEMP 36.8; O2SAT 98–100
--- NOTE | 2024-04-29 09:48 | DI.RAD.S_ITS ---
PROCEDURE: PAIN L/S TRANSFORAMINAL INJECT INDICATIONS: Right L4/5 TFESI COMPARISON: None. FINDINGS/IMPRESSION: Fluoroscopic spot filming was performed to verify placement of spinal needles at the right L4-L5 level(s), as labeled on the films. Appropriate location(s) of the needle tip(s) was confirmed by injection of iodinated contrast. Dictated by: Tunde Flanagan M.D. on 04/29/2024 at 14:32 Approved by: Tunde Flanagan M.D. on 04/29/2024 at 14:32
[2024-04-29] MEDS: MIDAZOLAM 2 MG/2 ML VIAL IV (11:21)
[2024-04-29] MEDS: BETAMETHASONE 30 MG/5 ML MDV 12 MG INJ (11:26)
[2024-04-29] MEDS: DEXAMETHASONE 10 MG/ML VIAL INJ (11:26)
[2024-04-29] MEDS: BUPIVACAINE 0.25% (PF) VIAL 2 ML INJ (11:26)
[2024-04-29] MEDS: iopamidoL 15 ML VIAL 3 ML INJ (11:26)
--- NOTE | 2024-04-29 11:36 | P.PCN_ITS ---
Date/Time/Diagnoses Date of procedure: 04/29/24 Time of procedure: 11:36 Pre-procedure diagnosis: 1. FORAMINAL STENOSIS WITH LE SYMPTOMS Post-procedure diagnosis: same Procedure Notes Procedure: 1. FLUOROSCOPICALLY GUIDED CONTRAST CONTROLLED TRANSFORAMINAL EPIDURAL STEROID INJECTION - RIGHT L4/5 TFESI Indications: Caroline is referred by Dr. Arevalo for treatment of Foraminal Stenosis with Right LE Symptoms Physician: Colton Karimi Total Fluoroscopy time (seconds): 11 Total sedation minutes: 11 Complications: none Procedure in detail & Post-procedure care: FINDINGS Foraminal Nerve Root Compression secondary to disc disease and facet hypertrophy DESCRIPTION OF PROCEDURE Following review of allergy and review of potential side effects and complications, including, but not necessarily limited to, infection, allergic reaction, local tissue breakdown, stroke, temporary or permanent nerve injury, paralysis, and possible , the patient indicated that the patient understood and agreed to proceed. An informed consent document was signed by the patient, witnessed by a nurse, and placed in the patient's chart. Additionally, other treatment options including medications, modalities, and physical therapy were reviewed with the patient. After review of previous anaesthesic history and IV conscious sedation the patient was deemed safe to proceed with today?s procedure with IV conscious sedation as ASA class II designation. Safety time-out was performed to confirm patient ID, procedure to be performed and site of procedure. IV sedation was accomplished with a combination of 2mg of Versed was administered by the RN after DO order, titrated to patient comfort during the course of the procedure while the patient remained responsive to all verbal commands In the prone position following sterile prep and drape of the lumbar region, the right L4/5 posterior neuroforamen was identified fluoroscopically. The skin was anesthetized via a 25-gauge 1.5-inch needle with 1% lidocaine solution. At this point, a 25-gauge 3.5-inch spinal needle was atraumatically introduced and advanced under fluoroscopic guidance through the posterior right L4/5 neuroforamen to approximately the anterior aspect of the canal. Depth was confirmed on lateral view. Following negative aspiration, injection of approximately 1.5cc of Isovue 200 under live fluoroscopy in the AP view confirmed excellent flow along the nerve root, into the epidural space without vascular or intrathecal uptake observed Radiological data, including multiple fluoroscopic views of the lumbosacral s pine, reveal a spinal needle at the right L4/5 posterior neuroforamen. Subsequent views show flow of contrast material flowing superiorly and inferiorly along the nerve root confirming epidural flow. Subsequently, a test dose of 1.5 cc of 1% lidocaine solution was administered and patient was observed for two minutes for signs or symptoms of complications, including abdominal pain, shortness of breath, bilateral upper or lower extremity weakness, nausea and vomiting, prior to steroid injection. At this point, a total of 2cc or 10mg of dexamethasone and 6mg of betamethasone was injected without incident. The procedure tolerated the procedure well without signs or symptoms of complications prior to transfer to the recovery area continued monitoring without incident. The patient was then transferred to the recovery area where they were observed for an appropriate time after the injection. The patient reported a VAS score of 8 prior to the procedure and a post- procedure VAS of 1. POST OP INSTRUCTIONS The patient was provided a Pain Log to continue to record their response to the target-specific procedure prior to follow-up visit with their referring physician. Additionally, specific post-injection care instructions and a contact number to our office were provided if concerns arise regarding possible complications associated with the procedure are suspected.
== END 2024-04-29 11:57 | disposition home or self-care (01) ==
LOC: RAD 09:48
PROVIDERS: PCP Family Medicine; Referring Provider Physical Medicine & Rehabilitation; Visit Provider Physical Medicine & Rehabilitation
DX: M48.061 Spinal stenosis, lumbar region without neurogenic claudication (principal); M51.16 Intervertebral disc disorders with radiculopathy, lumbar region; M47.26 Other spondylosis with radiculopathy, lumbar region
CPT/HCPCS: 64483; 99152; J0702; J1100; J2250; J3490

== ENCOUNTER 2024-06-05 09:11 | Outpatient (CLI) | payer MEDICARE, OTHER, SELFPAY ==
[2024-06-05] VITALS (8 sets, daily range): BP systolic 136–160; BP diastolic 67–86; PULSE 67–75; RESP 16–17; TEMP 37; O2SAT 99–100
[2024-06-05] MEDS: MIDAZOLAM 2 MG/2 ML VIAL IV (12:05)
[2024-06-05] MEDS: DEXAMETHASONE 10 MG/ML VIAL INJ (12:09)
[2024-06-05] MEDS: BUPIVACAINE 0.25% (PF) VIAL 2 ML INJ (12:09)
[2024-06-05] MEDS: iopamidoL 15 ML VIAL 3 ML INJ (12:10)
[2024-06-05] MEDS: BETAMETHASONE 30 MG/5 ML MDV 12 MG INJ (12:10)
--- NOTE | 2024-06-05 12:17 | P.PCN_ITS ---
Date/Time/Diagnoses Date of procedure: 06/05/24 Time of procedure: 12:17 Pre-procedure diagnosis: 1. HNP WITH RADICULAR FEATURES, 2. MULTILEVEL CENTRAL STENOSIS, Post-procedure diagnosis: same Procedure Notes Procedure: 1. FLUOROSCOPICALLY GUIDED CONTRAST CONTROLLED INTERLAMINAR EPIDURAL STEROID INJECTION -L4/5 Indications: Caroline is referred by Dr. Arevalo for treatment of Bilateral Foraminal Stenosis R>L LE symptoms. Physician: Colton Karimi Total Fluoroscopy time (seconds): 6 Total sedation minutes: 10 Complications: none Procedure in detail & Post-procedure care: FINDINGS Multilevel Central Spinal Stenosis with Nerve Root Compression DESCRIPTION OF PROCEDURE Fluoroscopically guided, contrast-controlled L4/5 translaminar epidural steroid injection. Following review of allergy and review of potential side effects and complications, including, but not necessarily limited to, infection, allergic reaction, local tissue breakdown, temporary as well as permanent nerve injury, paralysis, stroke and possible , the patient indicated that the patient understood and agreed to proceed. An informed consent document was signed by the patient, witnessed by a nurse, and placed in the patient's chart. Additionally, other treatment options including modalities, medications, and physical therapy were reviewed with the patient. After review of previous anaesthesic history and IV conscious sedation the patient was deemed safe to proceed with today?s procedure with IV conscious sedation as ASA class II designation. Safety time-out was performed to confirm patient ID, procedure to be performed and site of procedure. IV sedation was accomplished with a combination of 2mg of Versed was administered by the RN after DO order, titrated to patient comfort during the course of the procedure while the patient remained responsive to all verbal commands In the prone position, following sterile prep and drape of the lumbar region, the L4/5 translaminar space was identified fluoroscopically. The skin was anesthetized via a 25-gauge, 1.5inch needle with 1% lidocaine solution. At this point, a 22-gauge short bevel spinal needle was atraumatically introduced and advanced under fluoroscopic guidance into the region of the L4/5 translaminar space. Depth was confirmed on lateral view. Radiological data, including multiple fluoroscopic views of the lumbar spine, reveal a spinal needle at the L4/5 translaminar space. Lateral views then show placement of the needle in the epidural space. Subsequent views show contrast material flowing superiorly and inferiorly in the epidural space. No vascular or intrathecal uptake is observed. At this point, using loss of resistance technique with saline and air, the epidural space was entered. This was confirmed following negative aspiration with injection of approximately 1.5cc of Isovue 200, showing excellent epidural flow without vascular or intrathecal uptake. At this point, 1cc of 1% lidocaine solution combined with 3cc or 10mg of dexamethasone and 12mg betamethasone was injected without incident. The patient tolerated the procedure well without signs or symptoms of complications prior to transfer to the recovery area continued monitoring without incident. The patient was then transferred to the recovery area where they were observed for an appropriate period of time after the injection. The patient reported a VAS score of 7 prior to the procedure and a post- procedure VAS of 1. POST OP INSTRUCTIONS The patient was provided a Pain Log to continue to record their response to the target-specific procedure prior to follow-up visit with their referring physician. Additionally, specific post-injection care instructions and a contact number to our office were provided if concerns arise regarding possible complications associated with the procedure are suspected.
== END 2024-06-05 12:40 | disposition home or self-care (01) ==
PROVIDERS: PCP Family Medicine; Referring Provider Physical Medicine & Rehabilitation; Visit Provider Physical Medicine & Rehabilitation
DX: M51.16 Intervertebral disc disorders with radiculopathy, lumbar region (principal); M48.061 Spinal stenosis, lumbar region without neurogenic claudication
CPT/HCPCS: 62323; 99152; J0702; J1100; J2250; J3490

== ENCOUNTER → 2024-07-17 09:32 | Outpatient (CLI) | payer MEDICARE, OTHER, SELFPAY ==
[2024-07-17 18:52] LABS: Add Manual Diff / Slide Review NO; Basophils Absolute Auto 0 /uL (0-100); Basophils Percent Auto 0.9 % (0-2); Eosinophils Absolute Auto 200 /uL (0-450); Hematocrit 37.4 % (36-46); Hemoglobin 12.1 g/dL (12.0-16.0); Lymphocytes Absolute Auto 1100 /uL (1100-4500); Lymphocytes Percent Auto 30.5 % (25-40); Mean Corpuscular HGB Conc 32.3 % (30-36); Mean Corpuscular Volume 83.7 fL (80-100); Monocytes Absolute Auto 400 /uL (0-900); Monocytes Percent Auto 12.5 % (3-14); Neutrophils Absolute Auto 1700 /uL (1500-7000); Neutrophils Percent Auto 49.1 % (50-75); Platelet Count 272 X10^3/uL (150-400); Red Blood Cell Count 4.47 X10^6/uL (4.0-5.2); Red Cell Distribution Width 17.1 % (11.6-14.8); White Blood Cell Count 3.5 X10^3/uL (4.5-11.0)
[2024-07-17 18:57] LABS: HEMOLYSIS < 15 (0-50); Iron 76 ug/dL (37-170)
[2024-07-17 19:02] LABS: BUN Creatinine Ratio 20.6 (6-22); Blood Urea Nitrogen 14 mg/dL (7-17); Carbon Dioxide 26 mmol/L (22-32); Chloride 99 mmol/L (98-107); Cholesterol 217 mg/dL (140-199); Estimated Glomerular Filt Rate > 60 mL/min (>60); Glucose 84 mg/dL (70-99); HDL Cholesterol 109 mg/dL (40-60); HEMOLYSIS < 15 (0-50); LDL Cholesterol Calculated 95 mg/dL (<100); Potassium 4.2 mmol/L (3.4-5.1); Sodium 135 mmol/L (137-145); Triglycerides 64 mg/dL (35-150)
[2024-07-17 19:17] LABS: Percent Iron Saturation 20 % (15-50); Total Iron Binding Capacity 379 ug/dL (265-497); Transferrin 337 mg/dL (206-381)
[2024-07-17 19:28] LABS: TSH w/ Reflex to FT4 1.19 uIU/mL (0.47-4.68)
== END ==
PROVIDERS: PCP Family Medicine; Visit Provider Family Medicine
DX: R06.09 Other forms of dyspnea (principal); R74.8 Abnormal levels of other serum enzymes; I10 Essential (primary) hypertension; I27.20 Pulmonary hypertension, unspecified; D64.9 Anemia, unspecified
CPT/HCPCS: 80048; 80061; 83540; 83550; 84443; 85025

== ENCOUNTER 2024-08-05 13:43 | Outpatient (CLI) | payer MEDICARE, OTHER, SELFPAY ==
[2024-08-05] VITALS (8 sets, daily range): BP systolic 125–152; BP diastolic 68–85; PULSE 66–80; RESP 14–17; TEMP 36.6; O2SAT 98–100
[2024-08-05] MEDS: MIDAZOLAM 2 MG/2 ML VIAL IV (14:39)
[2024-08-05] MEDS: BUPIVACAINE 0.25% (PF) VIAL 2 ML INJ (14:42)
[2024-08-05] MEDS: DEXAMETHASONE 10 MG/ML VIAL INJ (14:42)
[2024-08-05] MEDS: iopamidoL 15 ML VIAL 3 ML INJ (14:43)
[2024-08-05] MEDS: BETAMETHASONE 30 MG/5 ML MDV 12 MG INJ (14:43)
[2024-08-05] MEDS: BETAMETHASONE 30 MG/5 ML MDV 6 MG INJ (14:49)
--- NOTE | 2024-08-05 14:57 | P.PCN_ITS ---
Date/Time/Diagnoses Date of procedure: 08/05/24 Time of procedure: 14:58 Pre-procedure diagnosis: FORAMINAL STENOSIS WITH LE SYMPTOMS Post-procedure diagnosis: same Procedure Notes Procedure: 1. FLUOROSCOPICALLY GUIDED CONTRAST CONTROLLED TRANSFORAMINAL EPIDURAL STEROID INJECTION - RIGHT L5/S1 TFESI Indications: Caroline is referred by Dr. Arevalo for treatment of Foraminal Stenosis with Right LE Symptoms Physician: Colton Karimi Total Fluoroscopy time (seconds): 5 Total sedation minutes: 10 Complications: none Procedure in detail & Post-procedure care: FINDINGS Foraminal Nerve Root Compression secondary to disc disease and facet hypertrophy DESCRIPTION OF PROCEDURE Following review of allergy and review of potential side effects and complications, including, but not necessarily limited to, infection, allergic reaction, local tissue breakdown, stroke, temporary or permanent nerve injury, paralysis, and possible , the patient indicated that the patient understood and agreed to proceed. An informed consent document was signed by the patient, witnessed by a nurse, and placed in the patient's chart. Additionally, other treatment options including medications, modalities, and physical therapy were reviewed with the patient. After review of previous anaesthesic history and IV conscious sedation the patient was deemed safe to proceed with today?s procedure with IV conscious sedation as ASA class II designation. Safety time-out was performed to confirm patient ID, procedure to be performed and site of procedure. IV sedation was accomplished with a combination of 2mg of Versed was administered by the RN after DO order, titrated to patient comfort during the course of the procedure while the patient remained responsive to all verbal commands In the prone position following sterile prep and drape of the lumbar region, the right L5/S1 posterior neuroforamen was identified fluoroscopically. The skin was anesthetized via a 25-gauge 1.5-inch needle with 1% lidocaine solution. At this point, a 25-gauge 3.5-inch spinal needle was atraumatically introduced and advanced under fluoroscopic guidance through the posterior right L5/S1 neuroforamen to approximately the anterior aspect of the canal. Depth was confirmed on lateral view. Following negative aspiration, injection of approximately 1.5cc of Isovue 200 under live fluoroscopy in the AP view confirmed excellent flow along the nerve root, into the epidural space without vascular or intrathecal uptake observed Radiological data, including multiple fluoroscopic views of the lumbosacral spine, reveal a spinal needle at the right L5/S1 posterior neuroforamen. Subsequent views show flow of contrast material flowing superiorly and inferiorly along the nerve root confirming epidural flow. Subsequently, a test dose of 1.5 cc of 1% lidocaine solution was administered and patient was observed for two minutes for signs or symptoms of complications, including abdominal pain, shortness of breath, bilateral upper or lower extr emity weakness, nausea and vomiting, prior to steroid injection. At this point, a total of 2cc or 10mg of dexamethasone and 6mg of betamethasone was injected without incident. The procedure tolerated the procedure well without signs or symptoms of complications prior to transfer to the recovery area continued monitoring without incident. The patient was then transferred to the recovery area where they were observed for an appropriate time after the injection. The patient reported a VAS score of 7 prior to the procedure and a post- procedure VAS of 0. POST OP INSTRUCTIONS The patient was provided a Pain Log to continue to record their response to the target-specific procedure prior to follow-up visit with their referring physician. Additionally, specific post-injection care instructions and a contact number to our office were provided if concerns arise regarding possible complications associated with the procedure are suspected.
== END 2024-08-05 15:47 | disposition home or self-care (01) ==
LOC: RAD 13:44
PROVIDERS: PCP Family Medicine; Referring Provider Physical Medicine & Rehabilitation; Visit Provider Physical Medicine & Rehabilitation
DX: M51.17 Intervertebral disc disorders with radiculopathy, lumbosacral region (principal)
CPT/HCPCS: 64483; 99152; J0702; J1100; J2250; J3490

== ENCOUNTER → 2024-11-20 11:11 | Outpatient (CLI) | payer MEDICARE, OTHER, SELFPAY ==
[2024-11-20 20:08] LABS: HDL Cholesterol 118 mg/dL (40-60)
[2024-11-20 20:45] LABS: Cholesterol 225 mg/dL (140-199); Glucose 84 mg/dL (70-99); Triglycerides 56 mg/dL (35-150)
[2024-11-20 20:52] LABS: Hep C Virus Ab w/Reflex Quant NEGATIVE s/c (NEGATIVE)
== END ==
PROVIDERS: PCP Family Medicine; Visit Provider Family Medicine
DX: Z13.1 Encounter for screening for diabetes mellitus (principal); Z13.6 Encounter for screening for cardiovascular disorders; Z11.59 Encounter for screening for other viral diseases
CPT/HCPCS: 80061; 82947; 86803